=== PATIENT | male | born 1940 | race Two or more races ===

== ENCOUNTER 2024-03-17 03:18 | Emergency (ER) | payer OTHER ==
[~2024-03-17] VITALS: Ht 167.6 cm; Wt 95.3 kg
[2024-03-17 03:28] VITALS: BP 127/88; O2SAT 96
[2024-03-17] MEDS ORDERED: CHILDREN'S ASPI81 MG (03:29)
[2024-03-17] MEDS ORDERED: TETANUS & DIPHTHERIA TOX,ADULT 0.5 ML VIAL IM STA (05:23)
[2024-03-17] MEDS ORDERED: CEFAZOLIN SODIUM 1,000 MG VIAL IM STA (05:23)
[2024-03-17] MEDS ORDERED: CEFAZOLIN SODIUM 1,000 MG VIAL ONE (05:31)
[2024-03-17] MEDS ORDERED: TETANUS DIPHTHERIA TOX. ADSOR 5 ML VIAL IM ONE (05:31)
[2024-03-17] MEDS ORDERED: ACETAMINOPHEN 500 MG GEL..CAP PO ONE (06:11)
== END 2024-03-17 06:34 | disposition home or self-care (01) ==
LOC: ER 03:18
DX: S01.01XA Laceration without foreign body of scalp, initial encounter (principal); W10.8XXA Fall (on) (from) other stairs and steps, initial encounter; Y93.89 Activity, other specified; Y92.89 Other specified places as the place of occurrence of the external cause; Y99.8 Other external cause status
CPT/HCPCS: 12002; 90471; 90714; 96372; 99282; J0690; J1670